=== PATIENT | female | born 1975 | race African-American/Black ===

== ENCOUNTER 2016-07-12 16:26 | Emergency (ER) | payer OTHER ==
[~2016-07-12] VITALS: Ht 157.5 cm; Wt 92.1 kg
[~2016-07-12 16:26] MED LIST: ANTIVERT25 M1 PO; COLACE 100 MG100 MG PO; HYDROCHLOROTHIA25 M2 PO; HYDROCODONE-AP1 EAC6 PO; IBUPROFEN 600600 M1 PO; IBUPROFEN 800800 M1 PO; IRON325 PO; LIPITOR 20 MG T20 M1 PO; NORCO 5-325 TA1 EACH PO; PLAVIX 75 MG TA75 M1 PO; PROAIR HFA8.5 GM INH; TESSALON PERLE100 MG PO; VITAMIN D400 UNIT PO; ZYRTEC10 MG PO
[2016-07-12] MEDS ORDERED: HYDROCODONE-AP1 EAC6 PO (17:16)
[2016-07-12] MEDS ORDERED: PREDNISONE 20 M20 MG PO (17:19)
[2016-07-12] MEDS ORDERED: FLEXERIL PO (17:19)
== END 2016-07-12 17:46 | disposition home or self-care (01) ==
LOC: ER 16:26
DX: M54.12 Radiculopathy, cervical region (principal); Z86.73 Personal history of transient ischemic attack (TIA), and cerebral infarction without residual deficits; J45.909 Unspecified asthma, uncomplicated; E78.5 Hyperlipidemia, unspecified; Z86.718 Personal history of other venous thrombosis and embolism; Z90.710 Acquired absence of both cervix and uterus; Z88.0 Allergy status to penicillin; Z88.1 Allergy status to other antibiotic agents; F10.99 Alcohol use, unspecified with unspecified alcohol-induced disorder

== ENCOUNTER 2017-07-05 00:46 | Emergency (ER) | payer OTHER ==
[~2017-07-05] VITALS: Ht 157.5 cm; Wt 84.8 kg
--- NOTE | ~2017-07-05 | EKG ---
[place] [address] [id number] [facility] [place] [address] ELECTROCARDIOGRAM REPORT Name: KUSHAL WILLIAM Celso [id number] Admission: 07/05/17 Attend Phys: Discharge: 07/05/17 Date of : 71 Report #: [id number] THIS REPORT FOR: //name// [facility] ED Test Date: 2017-07-05 Test Time: 01:23:45 Pat Name: KUSHAL WILLIAM Department: Room: Gender: F [employer] Programming Lead: [facility] : 1975 Requested By: Pamela Butcher Order Number: [id number] MD: Joey Bryant Measurements Intervals [place] Rate: 83 P: 39 [place]: 163 QRS: -21 QRSD: 93 T: 25 QT: 353 QTc: 415 Interpretive Statements Sinus rhythm Borderline left axis deviation Compared to ECG 09/14/2015 18:22:33 No significant changes Electronically Signed On 07-05-2017 9:08:09 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 07/05/17 [id number] Joey Bryant MD, FACC /EPI
[~2017-07-05 00:46] MED LIST changes: +FLEXERIL PO; +PREDNISONE 20 M20 MG PO
[2017-07-05 01:22] LABS: HEMATOCRIT 37.4 % (37.0-47.0); HEMOGLOBIN 12.1 gm/dL (12.0-15.0); MCH 27.5 pg (26.0-34.0); MCHC 32.3 g/dL (28.0-37.0); MCV 85.1 fL (80.0-100.0); PLATELET COUNT 306 thou/uL (150-400); RBC 4.39 mil/uL (4.20-5.00); RDW 14.1 % (10.5-14.5); WBC 7.5 thou/uL (4.0-11.0)
[2017-07-05 01:27] LABS: CALCIUM 9.1 mg/dL (8.5-10.1); CREATININE 0.8 mg/dL (0.6-1.0); POTASSIUM 3.2 mmol/L (3.5-5.1)
[2017-07-05] MEDS ORDERED: PROAIR HFA8.5 GM INH (01:45)
[2017-07-05] MEDS ORDERED: TESSALON PERLE100 MG PO (01:45)
[2017-07-05] MEDS ORDERED: PREDNISONE 20 M20 MG PO (01:54)
[2017-07-05 02:04] VITALS: BP 119/82
[2017-07-05 02:05] LABS: ABSOLUTE NEUTROPHILS 2.9 thou/uL (1.4-8.2); ATYPICAL LYMPHS 1 %; LARGE PLATELETS OCCASIONAL
== END 2017-07-05 02:10 | disposition home or self-care (01) ==
LOC: ER 00:46
PROVIDERS: Emergency Medicine
DX: J06.9 Acute upper respiratory infection, unspecified (principal); I10 Essential (primary) hypertension; J45.909 Unspecified asthma, uncomplicated; D64.9 Anemia, unspecified; I82.409 Acute embolism and thrombosis of unspecified deep veins of unspecified lower extremity; D21.9 Benign neoplasm of connective and other soft tissue, unspecified; Z90.710 Acquired absence of both cervix and uterus; Z88.0 Allergy status to penicillin; Z88.6 Allergy status to analgesic agent

== ENCOUNTER 2018-04-29 18:05 | Emergency (ER) | payer OTHER ==
[~2018-04-29] VITALS: Ht 167.6 cm; Wt 84.8 kg
[2018-04-29] MEDS ORDERED: VENTOLIN HFA 1818 GM INH (19:28)
[2018-04-29] MEDS ORDERED: TESSALON PERLE100 MG PO (19:28)
== END 2018-04-29 20:04 | disposition home or self-care (01) ==
LOC: ER 18:05
DX: J40 Bronchitis, not specified as acute or chronic (principal); J30.9 Allergic rhinitis, unspecified; J45.909 Unspecified asthma, uncomplicated; I10 Essential (primary) hypertension; D64.9 Anemia, unspecified; E78.5 Hyperlipidemia, unspecified; Z86.73 Personal history of transient ischemic attack (TIA), and cerebral infarction without residual deficits; Z86.718 Personal history of other venous thrombosis and embolism; Z88.0 Allergy status to penicillin; Z88.6 Allergy status to analgesic agent